=== PATIENT | female | born 1995 | race Caucasian/White ===

== ENCOUNTER 2024-08-17 04:30 | Emergency (ER) | payer MEDICAID ==
[2024-08-17] MEDS: Ketorolac 30 MG/ML SDV IM ONE (04:45)
[2024-08-17] MEDS: HYDROmorphone 2 MG/ML Syringe ONE (05:34)
[2024-08-17] MEDS: HYDROmorphone 1 MG/ML Syringe IVPUSH ONE (05:34)
[2024-08-17] MEDS: Etomidate 2 MG/ML 10 ML SDV IVPUSH ONE (05:47)
[2024-08-17] MEDS: Etomidate 2 MG/ML 20 ML SDV IVPUSH ONE (06:12)
== END 2024-08-17 09:01 | disposition home or self-care (01) ==
LOC: LB.ED 04:30
DX: S83.014A Lateral dislocation of right patella, initial encounter (principal); X50.0XXA Overexertion from strenuous movement or load, initial encounter
CPT/HCPCS: 27560; 73552-RT; 73560-RT; 96372; 96374; 99283-25; A0425; A0428; J1171; J1885; J3490